=== PATIENT | male | born 1990 | race Caucasian/White ===

== ENCOUNTER 2022-08-31 06:08 | Emergency (ER) | payer OTHER, SELFPAY ==
--- NOTE | ~2022-08-31 | XR_ITS ---
EXAMINATION: XR FOOT, LEFT CLINICAL INFORMATION: Injury. Fall. COMPARISON: None TECHNIQUE: AP, lateral, and oblique views of the left foot. FINDINGS: There is a comminuted minimally displaced fracture of the mid and distal shaft of the fifth metatarsal bone. No other fracture is seen. Joint spaces are normal. There is soft tissue swelling adjacent to the fracture. XR/XR foot LT min 3V IMPRESSION: Comminuted minimally displaced fracture of the mid and distal shaft of the left fifth metatarsal bone.
[2022-08-31 06:24] VITALS: BP 153/102; PULSE 94; RESP 16; TEMP 36.1; O2SAT 98; BMI 34.8
--- NOTE | 2022-08-31 07:32 | ED.EXTPRO ---
HPI - Extremity Problem General Chief complaint: Extremity Problem Stated complaint: L foot inj/Fall Time Seen by Provider: 08/31/22 07:15 Source: patient Mode of arrival: ambulatory Limitations: no limitations History of Present Illness HPI Narrative: 31-year-old male came in for evaluation of left foot pain. Patient fell 2 days ago falling and twisting his left foot complaining of swelling and black and blue hematoma to the left foot, unable to bear weight using crutches to walk did not seek medical attention [place]. Did not hurt his head no LOC, no headache, no blurry vision, no CP, no SOB, no abdominal pain. Related Data Previous Rx's Medication Instructions Recorded albuterol sulfate 90 mcg/actuation 2 puff inhalation Q6H PRN 08/07/22 aerosol inhaler (ProAir HFA) shortness of breath or wheezing 30 days #18 grams Allergies Allergy/AdvReac Type Severity Reaction Status Date / Time No Known Drug Allergies Allergy Unknown Unknown Verified 08/07/22 17:10 Review of Systems Review of Systems: All other systems are reviewed and are negative Constitutional: Reports as per HPI and Reports no additional constitutional complaints Eyes: Reports as per HPI and Reports no additional eye complaints Reports system reviewed and no additional complaints, except as documented Cardiovascular: Reports as per HPI and Reports no additional cardiovascular complaints Respiratory: Reports as per HPI and Reports no additional respiratory complaints Gastrointestinal: Reports as per HPI and Reports no additional gastrointestinal complaints Genitourinary: Reports no additional female genitourinary complaints Musculoskeletal: Reports no additional musculoskeletal complaints Skin/Breast: Reports system reviewed and no additional complaints, except as docu Psychiatric: Reports no additional psychiatric complaints Endocrine: Reports no additional endocrine complaints Hematologic/Lymphatic: Reports no additional hematologic/lymphatic complaints Allergic/Immunologic: Reports no additional allergic/immunologic complaints Reports system reviewed and no additional complaints, except as documented and Reports Abnormal speech present [facility] Past Medical History Medical History ADHD (attention deficit hyperactivity disorder) Anxiety Asthma Depression Obesity (BMI 30-39.9) Surgical History History of tonsillectomy and adenoidectomy S/P appendectomy Family History Family History Father Kidney problem Mother Heart problem Other Mental health problem Social History Social History Housing: Apartment Alcohol intake: current Alcohol intake frequency: a few times a month Patient Tobacco Use Status: Former Tobacco user Second Hand Smoke Exposure: Yes Substance Use Type: Marijuana Advance Directives: No Advance Directives Information Provided: No service: No Current occupational status: employed Cognitive needs: No Hearing needs: No Vision needs: Yes Physical Exam Vital Signs: Vital Signs: Last Vital Signs Temp 97.0 F 08/31/22 06:24 Pulse 94 08/31/22 06:24 Resp 16 08/31/22 06:24 BP 153/102 H 08/31/22 06:24 Pulse Ox 98 08/31/22 06:24 O2 Del Method 08/31/22 06:24 BMI result Body Mass Index 34.8 Vital signs have been reviewed as appeared to be correct. Blood pressure normal. Heart rate normal. Respiration rate normal. Temperature normal. Oxygen saturation normal. Appearance: Alert. Oriented X3. No acute distress. Head: Normal external exam. Normocephalic. Atraumatic. No Rust signs noted. No raccoon eyes noted Eyes: PERRLA. EOMI. Conjunctiva and sclera normal. Eyelids normal. ENT: TM's Normal. Pharynx normal. Uvula midline. Moist mucous membranes. No trismus noted. No drooling noted. No muffled voice noted. Neck: Normal inspection. Neck supple. FROM. No adenopathy. Thyroid Normal. No meningeal signs. No neck mass noted. CVS: Normal heart rate and rhythm. Heart sound normal. No murmurs noted. Pulses normal throughout. Respiratory: No respiratory distress. Painless inspiration. Breath sounds normal. No wheezes/rales/rhonchi noted. Chest nontender. No accessory muscle usage noted or decreased air movement noted. Abdomen: Soft and nontender. Bowel sounds normal in all 4 quadrants. No distention noted. No organomegaly noted. No visible injury noted. Back: No CVA tenderness. Full range of motion noted. Skin: Skin warm and dry. Normal skin color. Normal skin turgor. No rashes/lesions/lacerations noted. Extremities: Left foot with diffuse tenderness, swelling, areas of ecchymosis at the bases of the toes with diffuse tenderness to the distal of metatarsal area, neurovascularly intact. Neuro: Oriented X 3. Cranial nerve exam: II-XII are grossly intact No motor deficit. No sensory deficit. Reflexes normal. Course Course Course Narrative: Left metatarsal comminuted fracture. Continue with crutches, will provide postoperative shoe and follow up with Ortho. MDM - Extremity (Nontraumatic) Imaging Data Left foot x-ray: Attestation: I personally reviewed and interpreted this imaging study as follows: Radiologist's impression: Comminuted minimally displaced fracture of the mid and distal shaft of the left fifth metatarsal bone. Discharge Plan Discharge Clinical Impression: Displaced fracture of fifth metatarsal bone, left foot, initial encounter for closed fracture Patient Disposition: Home, Self-Care Instructions: Foot Fracture in Adults (ED) Prescriptions: No Action albuterol sulfate [ProAir HFA] 90 mcg/actuation HFA aerosol inhaler 2 puff inhalation Q6H PRN (Reason: shortness of breath or wheezing) 30 Days Qty: 18 5RF Referrals: Estuardo Kang MD [Physician] - Stand Alone Forms: Work/School Release
== END 2022-08-31 09:05 | disposition home or self-care (01) ==
PROVIDERS: Emergency Provider Emergency Medicine
DX: S92.352A Displaced fracture of fifth metatarsal bone, left foot, initial encounter for closed fracture (principal); X50.1XXA Overexertion from prolonged static or awkward postures, initial encounter; Y93.9 Activity, unspecified; Y92.9 Unspecified place or not applicable; Y99.9 Unspecified external cause status
CPT/HCPCS: 73630; 99283

== ENCOUNTER 2022-09-12 | Outpatient (REF) | payer OTHER, SELFPAY ==
--- NOTE | ~2022-09-12 | XR_ITS ---
EXAMINATION: XR FOOT, LEFT CLINICAL INFORMATION: Fracture left fifth metatarsal. Follow-up. COMPARISON: Radiographs left foot 08/31/2022. TECHNIQUE: Left foot is imaged in 3 views. FINDINGS: There is a comminuted fracture mid to distal shaft left fifth metatarsal, alignment similar to prior study. No interval callus formation. Again, there is some overlap of the fracture fragments. Distal major fracture fragment is displaced medially by one half bone diameter. The remainder the bony structures are intact. No dislocation. XR/XR foot LT min 3V IMPRESSION: Comminuted fracture left fifth metatarsal, alignment similar to prior study 08/31/2022.
== END 2022-09-12 00:01 | disposition home or self-care (01) ==
LOC: HO.HOSX
PROVIDERS: Visit Provider Physician Assistant
DX: M79.672 Pain in left foot (principal)
CPT/HCPCS: 73630

== ENCOUNTER 2022-10-10 12:19 | Outpatient (REF) | payer OTHER, SELFPAY ==
--- NOTE | ~2022-10-10 | XR_ITS ---
EXAMINATION: XR foot LT min 3V CLINICAL INFORMATION: Reason for Exam M79.672 - Pain in left foot COMPARISON: Foot radiographs 09/12/2022 TECHNIQUE: AP, lateral, and oblique views of the foot FINDINGS: Again seen is an obliquely oriented comminuted fracture of the distal fifth metatarsal diaphysis which demonstrates increasing periosteal reaction compatible with ongoing healing, in unchanged alignment. Plantar calcaneal spurring. Joint spaces are maintained. Mild soft tissue swelling along the dorsum of the foot. No tibiotalar joint effusion. XR/XR foot LT min 3V IMPRESSION: Again seen is an obliquely oriented comminuted fracture of the distal fifth metatarsal diaphysis which demonstrates increasing periosteal reaction compatible with ongoing healing, in unchanged alignment.
== END 2022-10-10 12:20 | disposition home or self-care (01) ==
LOC: HO.HOSX 12:19
PROVIDERS: Visit Provider Physician Assistant
DX: M79.672 Pain in left foot (principal)
CPT/HCPCS: 73630

== ENCOUNTER 2022-11-07 06:47 | Outpatient (REF) | payer OTHER, SELFPAY ==
--- NOTE | ~2022-11-07 | XR_ITS ---
EXAMINATION: XR FOOT, LEFT CLINICAL INFORMATION: Left foot pain COMPARISON: 10/10/2022 TECHNIQUE: AP, lateral, and oblique views of the left foot. FINDINGS: Redemonstration of the fifth metatarsal shaft fracture. Alignment is unchanged from prior. There is increased callus formation with bony bridging. Joint spaces are maintained. The soft tissues are unremarkable. Tiny plantar heel spur. XR/XR foot LT min 3V IMPRESSION: Healing fifth metatarsal shaft fracture with unchanged alignment.
== END 2022-11-07 06:48 | disposition home or self-care (01) ==
LOC: HO.HOSX 06:47
PROVIDERS: Visit Provider Physician Assistant
DX: M79.672 Pain in left foot (principal)
CPT/HCPCS: 73630

== ENCOUNTER 2023-08-06 15:52 | Outpatient (AMB) | payer OTHER, SELFPAY ==
--- NOTE | 2023-08-06 16:01 | MHC.PC.OV ---
Vital Signs 08/06/23 16:02 Height 5 ft 10 in Weight 247 lb BMI 35.4 BP 134/86 Blood Pressure Location Lt brachial Position Sitting Pulse 72 Pulse Source Pulse Oximeter Temp Source Skin Pulse Oximetry (%) 97 Oxygen Delivery Method Room Air Intake Visit Reasons: Lyme Disease F/U Allergies shellfish derived Allergy (Severe, Verified 08/06/23 16:17) Anaphylaxis No Known Drug Allergies Allergy (Unknown, Verified 08/06/23 16:17) Unknown Medication List - Last Reconciled 08/06/23 by JESUS Quintero albuterol sulfate 90 mcg/actuation (ProAir HFA) 2 puffs inhalation Q6H PRN 30 days clonidine HCl 0.3 mg PO BEDTIME doxycycline hyclate 100 mg PO BID lamotrigine 50 mg PO DAILY sertraline 50 mg PO DAILY Tobacco use date assessed: 08/06/23 Dental Screening Dental Screen Date: 08/06/23 Did you have a dental visit in the last 12 months?: No Did you have a dental problem in the last 6 months where you did not have access to dental care?: No HPI Lyme Disease F/U HPI Details Patient is a 32-year-old male who presents today for an office visit to follow-up on Lyme disease. Patient of Dr. Larson. Medical history significant for asthma, anxiety, ADHD, obesity. Patient reports that he was more tired for the past few months, then he went to urgent care about 1 week ago and he tested positive for Lyme disease, patient was started on doxycycline b.i.d. for 14 days, he started antibiotic about 4 days ago. Patient reports when he was sick and not feeling well he was intermittently off from work for about 7 days, he reports that he was sleeping for 12-16 hours and he missed work and he would like to have intermittent FMLA paperwork filled out-he will provide office with paperwork for missed days from work. No shortness of breath or chest pain. [facility] Medical History ADHD (attention deficit hyperactivity disorder) Anxiety Asthma Depression Obesity (BMI 30-39.9) Surgical History History of tonsillectomy and adenoidectomy S/P appendectomy Family History Father Kidney problem Cardiomyopathy Mother Heart problem Other Mental health problem Social History Housing: Apartment Alcohol intake: current Alcohol intake frequency: a few times a month Patient Tobacco Use Status: Former Tobacco user (smoked for 1 month or 2 at age 22 then stopped.) Second Hand Smoke Exposure: Yes Substance Use Type: Marijuana service: No Current occupational status: employed Current occupation: post office, rt hand Cognitive needs: No Hearing needs: No Vision needs: Yes Questionnaire Thrive Questionnaire Date Thrive assessed: 01/09/23 AUDIT C Alcohol Use Questionnaire (AUDIT-C) 1. How often do you have a drink containing alcohol?: Never 3. How often do you have six or more drinks on one occasion?: Never Total Score: 0 Score Reviewed/Action Taken: No ALEJANDRA-7 AMB Questionnaire ALEJANDRA-7 Date ALEJANDRA - 7 assessed: 08/07/22 Source: Developed by Drs. Berhane Roberts, Eva Singh, Gustavo Turcios and colleagues, with an educational marii from [employer]. Review of Systems Const Denies body aches, Denies chills, Denies fever(s) and Denies headache(s) Eyes Denies change in vision ENT Denies dizziness, Denies otalgia, Denies headache(s), Denies nasal discharge, Denies sinus pain and Denies sore throat Card Denies chest pain, Denies edema, Denies lightheadedness and Denies dyspnea Resp Denies cough, Denies dyspnea and Denies wheezing GI Denies abdominal pain Denies dysuria Musc Denies myalgias Skin/Breast Denies rash Neuro Denies dizziness and Denies headache(s) Aller/Immun Denies wheezing Physical exam (Primary Care) Vital Signs: Last Vital Signs Pulse 72 08/06/23 16:02 BP 134/86 08/06/23 16:02 Pulse Ox 97 08/06/23 16:02 Oxygen Delivery Method Room Air 08/06/23 16:02 BMI result Body Mass Index 35.4 Tobacco/Smoking Status: Tobacco use Status Tobacco use date assessed 08/06/23 08/06/23 16:05 Patient Tobacco Use Status Former Tobacco user (smoked 08/06/23 16:05 for 1 month or 2 at age 22 then stopped.) Thrive Assessment: Date of Thrive Assessment Date Thrive assessed 01/09/23 08/06/23 16:05 Const General: cooperative and no acute distress Orientation/consciousness: patient oriented x3 HENMT Head: Yes normocephalic and Yes atraumatic Mouth: oropharynx normal and moist mucous membranes Throat: Yes posterior oropharynx normal Eyes General: appearance normal, both eyes and all related structures Neck Neck: Yes normal visual inspection, Yes full ROM and Yes no lymphadenopathy Resp Effort & Inspection: normal respiratory effort and able to speak in complete sentences Auscultation: clear to auscultation bilaterally, no crackles, no rales, no rhonchi and no wheezes Cardio Rate: regular rate Rhythm: regular rhythm Heart sounds: S1 normal heart sound present and S2 normal heart sound present GI Auscultation: normal bowel sounds Skin General skin exam: no rashes or lesions noted Neuro General: patient oriented x3 Gait exam (Neuro): Normal gait present Extrem General: Yes full ROM and No edema Assessment and Plan Assessment & Plan (1) Lyme disease: Code(s): A69.20 - Lyme disease, unspecified Plan: Patient is to continue doxycycline as prescribed by urgent care. Will refer to Infectious Disease for an evaluation and treatment. Patient agreed with the plan. Keep appointment with PCP as scheduled or follow-up sooner as needed. Orders: Referrals Infectious Disease Referral A69.20 - Lyme disease, unspecified Coding Level of Care Code Est Pt Level 3 (09003) Diagnoses Lyme disease A69.20
[2023-08-06 16:02] VITALS: BP 134/86; PULSE 72; O2SAT 97; BMI 35.4
== END 2023-08-06 16:33 | disposition home or self-care (01) ==
PROVIDERS: PCP Internal Medicine; Visit Provider Nurse Practitioner Family
DX: A69.20 Lyme disease, unspecified (principal)
CPT/HCPCS: 99213

== ENCOUNTER 2023-08-08 12:55 | Outpatient (REF) | payer OTHER, SELFPAY ==
[2023-08-08 14:18] LABS: Alanine Aminotransferase 29 U/L (0-40); Albumin Level 4.6 g/dL (3.5-5.0); Alkaline Phosphatase 66 U/L (39-117); Anion Gap 12 (12-20); Aspartate Amino Transferase 20 U/L (5-37); Bilirubin Total 0.6 mg/dL (0.0-1.0); Blood Urea Nitrogen 12 mg/dL (9-16); Calcium 9.8 mg/dL (8.4-10.2); Carbon Dioxide 27 mmol/L (22-29); Chloride 107 mmol/L (96-108); Cholesterol 198 mg/dL (<200); Estimated Glomerular Filt Rate > 60; Glucose Random 102 mg/dL (60-115); HDL Cholesterol 33 mg/dL (>40); LDL Cholesterol Calculated 132 mg/dL (<100); Potassium 4.6 mmol/L (3.3-5.1); Sodium 141 mmol/L (135-145); Total Protein 7.5 g/dL (6.5-8.0); Triglycerides 168 mg/dL (<150)
[2023-08-08 14:20] LABS: TSH reflex Free T4 0.73 uIU/mL (0.32-4.0); Vitamin D 25-OH Total 31.8 ng/mL (>30)
== END 2023-08-08 12:56 | disposition home or self-care (01) ==
LOC: HO.LAB 12:55
PROVIDERS: PCP Internal Medicine; Visit Provider Nurse Practitioner Family
DX: Z13.1 Encounter for screening for diabetes mellitus (principal); Z13.29 Encounter for screening for other suspected endocrine disorder; Z13.220 Encounter for screening for lipoid disorders; Z13.21 Encounter for screening for nutritional disorder; Z13.0 Encounter for screening for diseases of the blood and blood-forming organs and certain disorders involving the immune mechanism
CPT/HCPCS: 36415; 80053; 80061; 82306; 84443

== ENCOUNTER 2023-08-15 13:36 | Outpatient (AMB) | payer OTHER, SELFPAY ==
[2023-08-15 13:45] VITALS: BP 120/70; PULSE 71; O2SAT 97; BMI 35.7
--- NOTE | 2023-08-15 13:45 | MHC.OFFVIS ---
Intake Vital Signs 08/15/23 13:45 Height 5 ft 10 in Weight 249 lb BMI 35.7 BP 120/70 Pulse 71 Pulse Source Pulse Oximeter Pulse Oximetry (%) 97 Intake Visit Reasons: ref. Eloisa MelgarManjindere disease Allergies shellfish derived Allergy (Severe, Verified 08/06/23 16:17) Anaphylaxis No Known Drug Allergies Allergy (Unknown, Verified 08/06/23 16:17) Unknown HPI ref. Eloisa Melgar,[place] disease HPI Details He presents because he felt fatigued and achy and had a Lyme test performed. He had no rash,joint swelling,meningitis or lancinating painful neuropathy. He reported a fever about a month ago for a couple days. He didnt notice any imbedded ticks. FORMERLY [facility], [facility]1983 Medical History (Updated 08/24/23 @ 21:57 by Jasmine Gale MD) Fatigue Obesity (BMI 30-39.9) Asthma Anxiety Depression ADHD (attention deficit hyperactivity disorder) Surgical History History of tonsillectomy and adenoidectomy S/P appendectomy Family History Father Kidney problem Cardiomyopathy Mother Heart problem Other Mental health problem Social History Housing: Apartment Alcohol intake: current Alcohol intake frequency: a few times a month Patient Tobacco Use Status: Former Tobacco user (smoked for 1 month or 2 at age 22 then stopped.) Second Hand Smoke Exposure: Yes Substance Use Type: Marijuana service: No Current occupational status: employed Current occupation: post office, rt hand Cognitive needs: No Hearing needs: No Vision needs: Yes Review of Systems Const All systems reviewed & are unremarkable except as noted in HPI and below Physical Exam Vital Signs: Last Vital Signs Pulse 71 08/15/23 13:45 BP 120/70 08/15/23 13:45 Pulse Ox 97 08/15/23 13:45 BMI result Body Mass Index 35.7 Const General: cooperative Orientation/consciousness: patient oriented x3 HEENT Head: Yes normal to inspection Mouth: Normal oral and palatal mucosa present Eyes General: appearance normal, both eyes and all related structures Pupils: Equal, round and reactive pupils present Resp Effort & Inspection: normal respiratory effort Cardio Rate: regular rate Rhythm: regular rhythm GI Palpation (GI): Soft to palpation and nontender General: Yes no CVA tenderness Back/Spine/Pelvis Back: no CVA tenderness Skin General skin exam: no rashes or lesions noted Neuro General: patient oriented x3 Cranial nerves: Yes CN's II-XII intact bilaterally and Yes Equal, round and reactive pupils present Extrem General: Yes normal to inspection Psych Appearance: grossly normal Assessment & Plan Assessment & Plan (1) Fatigue: Comment: He has reported positive Lyme testing. He has fatigue. There are no objective signs of Lyme disease. Code(s): R53.83 - Other fatigue Plan: No further treatment or testing for Lyme disease Coding Level of Care Code New Pt Level 3 (97000) Diagnoses Fatigue R53.83
== END 2023-08-15 14:18 | disposition home or self-care (01) ==
LOC: HO.HID 13:36
PROVIDERS: PCP Internal Medicine; Visit Provider Internal Medicine
DX: R53.83 Other fatigue (principal)
CPT/HCPCS: 99203

== ENCOUNTER → 2023-08-15 13:36 | Outpatient (BNVA) | payer OTHER, SELFPAY | PROVIDERS: PCP Internal Medicine; Visit Provider Internal Medicine ==

== ENCOUNTER 2024-01-22 10:48 | Outpatient (AMB) | payer OTHER, SELFPAY ==
[2024-01-22 10:57] VITALS: BP 116/78; PULSE 81; O2SAT 96; BMI 37.0
--- NOTE | 2024-01-22 10:57 | MHC.PC.OV ---
Vital Signs 01/22/24 10:57 Height 5 ft 10 in Weight 258 lb 2 oz BMI 37.0 BP 116/78 Blood Pressure Location Lt brachial Position Sitting Pulse 81 Pulse Source Pulse Oximeter Pulse Oximetry (%) 96 Oxygen Delivery Method Room Air Intake Visit Reasons: physical Proj Engineer Required: No Accompanied by: Self / Same As Patient Allergies shellfish derived Allergy (Severe, Verified 01/22/24 11:46) Anaphylaxis No Known Drug Allergies Allergy (Unknown, Verified 01/22/24 11:46) Unknown Medication List - Last Reconciled 01/22/24 by Eugenio Larson MD albuterol sulfate 90 mcg/actuation (ProAir HFA) 2 puffs inhalation Q6H PRN 30 days clonidine HCl 0.3 mg PO BEDTIME lamotrigine 75 mg PO DAILY sertraline 75 mg PO DAILY Tobacco use date assessed: 01/22/24 Dental Screening Dental Screen Date: 01/22/24 Did you have a dental visit in the last 12 months?: No Did you have a dental problem in the last 6 months where you did not have access to dental care?: No Was dental information given to patient?: No HPI physical HPI Details Patient comes in today for his annual physical examination States that he has a few issues that he would like to have addressed Relates that he has been experiencing on and off pain in his left knee lately - feels that the pain ( more of a discomfort rather than actual pain ) is mostly under his left kneecap and that he feels it more often when he is on his feet and walking around He denies any history of injury or trauma to his left knee Adds that he's had some occasional episodes wherein he would develop double-vision recently Relates that he has (+) Hx of astigmatism and will be calling his african history professor to schedule an appointment for further evaluation of this BERTHA Patient also states that he has been waking up occasionally at night coughing and gagging recently He has also been experiencing increased fatigue lately and recalls that it has been mentioned to him in the past that he tends to have occasional apneic episodes when he is sleeping and he would not like to see somebody and get tested for sleep apnea Patient denies any headaches or dizziness Denies any chest pains, no shortness of breath No nausea/ vomiting, no abdominal pain No change in bowel habits noted He denies any acute urinary symptoms PFSH Medical History (Updated 01/23/24 @ 05:37 by Eugenio Larson MD) Bipolar disorder with depression Mixed hyperlipidemia Fatigue Obesity (BMI 30-39.9) Asthma Anxiety Depression ADHD (attention deficit hyperactivity disorder) Surgical History History of tonsillectomy and adenoidectomy S/P appendectomy Family History Father Kidney problem Cardiomyopathy Mother Heart problem Other Mental health problem Social History Housing: Apartment Alcohol intake: current Alcohol intake frequency: a few times a month Patient Tobacco Use Status: Former Tobacco user (smoked for 1 month or 2 at age 22 then stopped.) Second Hand Smoke Exposure: Yes Substance Use Type: Marijuana service: No Current occupational status: employed Current occupation: post office, rt hand Cognitive needs: No Hearing needs: No Vision needs: Yes Questionnaire PHQ-9 Over the last 2 weeks, how often have you been bothered by any of the following problems? 1. Little interest or pleasure in doing things: more than half the days 2. Feeling down, depressed, or hopeless: more than half the days 3. Trouble falling or staying asleep, or sleeping too much: more than half the days 4. Feeling tired or having little energy: more than half the days 5. Poor appetite or overeating: more than half the days 6. Feeling bad about yourself - or that you are a failure or have let yourself or your family down: more than half the days 7. Trouble concentrating on things, such as reading the newspaper or watching television: more than half the days 8. Moving or speaking so slowly that other people could have noticed. Or the opposite - being so fidgety or restless that you have been moving around a lot more than usual: more than half the days 9. Thoughts that you would be better off or of hurting yourself in some way: several days Total score: 17 Depression Screening Interpretation: Positive Depression Screening Follow-up: Existing condition and In treatment (Rx from psychiatry) Depression Screening Done: Yes 88391 - PHQ-9 Billing: Yes Source: Developed by Drs. Berhane Roberts, Eva Singh, Gustavo Turcios and colleagues, with an educational marii from [employer]. Thrive Questionnaire Date Thrive assessed: 01/22/24 I am a: Patient What is your living situation today?: I have a steady place to live Within the past 12 months, did the food you bought not last and you didn't have the money to get more?: Never true Within the past 12 months, did you worry whether your food would run out before you got money to buy more?: Never true Do you have trouble paying for medicines?: No Do you have trouble getting transportation to medical appointments?: No Do you have trouble paying your heating and electricity bill?: No Do you have trouble taking care of your child, family member or friend?: No Do you have trouble with day-to-day activities such as bathing, preparing meals, shopping, managing finances, etc.?: No Are you currently unemployed and looking for a job?: No Are you interested in more education?: No Please select the resources that you would like help with: None Currently or been in a relationship where the following occur: no concerns reported THRIVE Score: 0 AUDIT C Alcohol Use Questionnaire (AUDIT-C) 1. How often do you have a drink containing alcohol?: Never 3. How often do you have six or more drinks on one occasion?: Never Total Score: 0 Score Reviewed/Action Taken: Yes ALEJANDRA-7 AMB Questionnaire ALEJANDRA-7 Date ALEJANDRA - 7 assessed: 01/22/24 Feeling nervous, anxious, or on edge: 0 = Not at all Not being able to stop or control worryin = Not at all Worrying too much about different things: 0 = Not at all Trouble relaxin = Not at all Being so restless that it is hard to sit still: 0 = Not at all Becoming easily annoyed or irritable: 0 = Not at all Feeling afraid as if something awful might happen: 0 = Not at all Total ALEJANDRA-7 score (0-4 normal; 5-9 mild; 10-14 moderate; 15-21 severe): 0 Source: Developed by Eva Parks, Gustavo Turcios and colleagues, with an educational marii from [employer]. Review of Systems Const Denies chills, Reports daytime sleepiness, Reports fatigue, Denies fever(s), Denies headache(s), Denies malaise, Reports stops breathing during sleep and Denies weakness Eyes Denies blurry vision, Denies change in vision, Reports diplopia (on and off lately), Denies irritation and Denies itchy eyes ENT Denies dysphagia, Denies dizziness, Denies otalgia, Denies headache(s), Denies nasal congestion, Denies neck pain, Denies odynophagia and Denies sore throat Card Denies chest pain, Denies rapid heart rate, Denies irregular heart rhythm, Denies palpitations and Denies dyspnea Resp Denies chest congestion, Denies cough, Denies dyspnea and Denies wheezing GI Denies abdominal pain, Denies bloating, Denies constipation, Denies dysphagia, Denies heartburn, Denies diarrhea, Denies nausea, Denies odynophagia and Denies vomiting Denies hematuria, Denies difficulty urinating, Denies dysuria, Denies urinary frequency and Denies urinary urgency Musc Denies back pain, Reports arthralgias (left knee - see HPI), Denies joint swelling, Denies muscle weakness and Denies neck pain Skin/Breast Denies change in pigmentation, Denies lesions, Denies rash and Denies unusual bruising Neuro Denies dizziness, Denies headache(s), Denies paresthesias and Denies weakness Endo Reports fatigue and Denies palpitations Aller/Immun Denies itchy eyes and Denies wheezing Physical exam (Primary Care) Vital Signs: Last Vital Signs Pulse 81 01/22/24 10:57 BP 116/78 01/22/24 10:57 Pulse Ox 96 01/22/24 10:57 Oxygen Delivery Method Room Air 01/22/24 10:57 BMI result Body Mass Index 37.0 Tobacco/Smoking Status: Tobacco use Status Tobacco use date assessed 01/22/24 01/22/24 11:05 Patient Tobacco Use Status Former Tobacco user (smoked 01/22/24 11:05 for 1 month or 2 at age 22 then stopped.) PHQ-9: PHQ-9 Score PHQ-9: Total score 17 01/22/24 11:50 Depression Screening Interpretation: Positive Depression Screening Follow-up: Existing condition and In treatment (Rx from psychiatry) Thrive Assessment: Date of Thrive Assessment Date Thrive assessed 01/22/24 01/22/24 11:05 Currently or been in a relationship where the following occur: no concerns reported Const General: no acute distress, alert and awake Orientation/consciousness: patient oriented x3 [facility]: Yes normocephalic and Yes atraumatic Ears: external ears normal, TM's normal bilaterally and EAC's normal General nose exam: No nasal discharge present Face and sinus: Yes normal facial exam and Yes sinuses nontender Teeth and gingiva: dentition normal Throat: Yes posterior oropharynx normal and Yes tonsils normal (no TP congestion) Eyes Eyelids: Yes eyelids normal Conjunctivae: conjunctivae normal Pupils: Equal, round and reactive pupils present EOM: EOMs intact bilaterally Neck Neck: Yes no lymphadenopathy and Yes supple Thyroid: Thyroid normal Resp Auscultation: clear to auscultation bilaterally, no rales and no wheezes Cardio Rate: regular rate Rhythm: regular rhythm Heart sounds: no murmurs GI Palpation (GI): Soft to palpation, nontender and No hepatosplenomegaly present Auscultation: normal bowel sounds General: Yes no CVA tenderness Back/Spine/Pelvis Back: no CVA tenderness Thoracic/Lumbar Spine: thoracic and lumbar spine normal to inspection Skin Lesions: no lesions Rashes: no rashes Neuro General: patient oriented x3, moves all extremities, no focal motor deficits and CN's II-XI intact bilaterally Cranial nerves: Yes Equal, round and reactive pupils present Cognition (Neuro): normal cognition Gait exam (Neuro): Normal gait present Extrem General: Yes no clubbing, cyanosis or edema Left lower extremity: knee (no pain is elicited on physical exam today) Details: no tenderness and no swelling Assessment and Plan Assessment & Plan (1) Annual physical exam: Code(s): Z00.00 - Encounter for general adult medical examination without abnormal findings Plan: Check labs (2) Mixed hyperlipidemia: Code(s): E78.2 - Mixed hyperlipidemia Plan: Reinforced low cholesterol diet Patient is advised that his cholesterol levels were elevated when checked previously Will send him for repeat fasting lipids for follow up (3) Elevated blood pressure reading: Code(s): R03.0 - Elevated blood-pressure reading, without diagnosis of hypertension Plan: Patient's blood pressure has been much better controlled since his initial visit to our practice a couple of years ago Reinforced low sodium diet He is reminded to monitor his blood pressure periodically (4) Asthma: Code(s): J45.909 - Unspecified asthma, uncomplicated Qualifiers: Asthma severity: mild Asthma persistence: intermittent Asthma complication type: uncomplicated Qualified Code(s): J45.20 - Mild intermittent asthma, uncomplicated Plan: Continue Albuterol HFA 2 inhalations Q 6 hours PRN May need to consider further work ups if symptoms persist or if he has to use his inhaler regularly and frequently (5) Left knee pain: Code(s): M25.562 - Pain in left knee Qualifiers: Chronicity: unspecified Qualified Code(s): M25.562 - Pain in left knee Plan: He is reassured that his physical exam today did not reveal any significant findings in his knee Will send him for some knee x-rays for further evaluation (6) Daytime somnolence: Code(s): R40.0 - Somnolence Plan: Will refer patient to Sleep Medicine for further evaluation and to help rule out sleep apnea (7) ADHD (attention deficit hyperactivity disorder): Code(s): F90.9 - Attention-deficit hyperactivity disorder, unspecified type Qualifiers: Attention deficit-hyperactivity disorder type: unspecified Qualified Code(s): F90.9 - Attention-deficit hyperactivity disorder, unspecified type Plan: His medical records that we received from his previous PCP has indicated that patient has ADHD, among other diagnoses He is now following up with his therapist and with psychiatry regularly (8) Anxiety: Code(s): F41.9 - Anxiety disorder, unspecified Plan: Patient states that he smokes marijuana regularly to help him relax Continue Clonidine 0.3 mg Q HS and Setraline 75 mg QD Follow up with psychiatry as scheduled (9) Bipolar disorder with depression: Code(s): F31.9 - Bipolar disorder, unspecified Plan: Continue Lamotrigine 75 mg QD and Sertraline 75 mg QD Follow up with psychiatry as scheduled (10) Obesity (BMI 30-39.9): Code(s): E66.9 - Obesity, unspecified Plan: Reinforced diet/exercise as tolerated/lose weight Plan Follow up in 6 months Orders: Orders Complete Blood Count Auto Diff 01/22/24 D64.9 - Anemia, unspecified, Z00.00 - Encounter for general adult medical examination without abnormal findings Comprehensive [place]. Panel Fast 01/22/24 E78.00 - Pure hypercholesterolemia, unspecified, Z00.00 - Encounter for general adult medical examination without abnormal findings UA CC w/rflx Micro + Cult 01/22/24 R30.0 - Dysuria, Z00.00 - Encounter for general adult medical examination without abnormal findings Vitamin D 25-OH Total 01/22/24 E55.9 - Vitamin D deficiency, unspecified, Z00.00 - Encounter for general adult medical examination without abnormal findings XR knee LT 3V 01/22/24 M25.562 - Pain in left knee Lipid Panel 01/22/24 E78.00 - Pure hypercholesterolemia, unspecified, Z00.00 - Encounter for general adult medical examination without abnormal findings TSH reflex Free T4 01/22/24 E78.00 - Pure hypercholesterolemia, unspecified, Z00.00 - Encounter for general adult medical examination without abnormal findings Referrals Sleep Medicine Referral R06.81 - Apnea, not elsewhere classified, R06.83 - Snoring, R40.0 - Somnolence Coding Level of Care Code Est Pt Prev Care 18-39y(46724) Diagnoses Annual physical exam Z00.00 Mixed hyperlipidemia E78.2 Elevated blood pressure reading R03.0 Mild intermittent asthma without complication J45.20 Asthma severity: mild Asthma persistence: intermittent Asthma complication type: uncomplicated Left knee pain, unspecified chronicity M25.562 Chronicity: unspecified Daytime somnolence R40.0 Attention deficit hyperactivity disorder (ADHD), unspecified ADHD type F90.9 Attention deficit-hyperactivity disorder type: unspecified Anxiety F41.9 Bipolar disorder with depression F31.9 Obesity (BMI 30-39.9) E66.9
== END 2024-01-22 11:59 | disposition home or self-care (01) ==
PROVIDERS: PCP Internal Medicine; Visit Provider Internal Medicine
DX: Z00.00 Encounter for general adult medical examination without abnormal findings (principal); E66.9 Obesity, unspecified; Z68.37 Body mass index [BMI] 37.0-37.9, adult; F31.9 Bipolar disorder, unspecified; E78.2 Mixed hyperlipidemia; R03.0 Elevated blood-pressure reading, without diagnosis of hypertension; J45.20 Mild intermittent asthma, uncomplicated; M25.562 Pain in left knee; R40.0 Somnolence; F90.9 Attention-deficit hyperactivity disorder, unspecified type; F41.9 Anxiety disorder, unspecified
CPT/HCPCS: 99395

== ENCOUNTER 2024-01-22 12:05 | Outpatient (REF) | payer OTHER, SELFPAY ==
--- NOTE | ~2024-01-22 | XR_ITS ---
EXAMINATION: XR KNEE, LEFT CLINICAL INFORMATION: Pain in left knee. COMPARISON: None available. TECHNIQUE: Three views of the left knee. FINDINGS: Lvese-tz-wdbtbyog joint effusion. Joint spaces and alignment are preserved. Small sclerotic/ossific oval focus projects over the lateral femoral condyle on the sunrise view and over the anterior aspect of the distal femur on the lateral view. Differential considerations include an ossific lesion such as a bone island, versus soft tissue calcification/loose body. XR/XR knee LT 3V IMPRESSION: 1. Wqzeo-kc-mqtjddgj joint effusion. 2. Small sclerotic/ossific oval focus projects over the lateral femoral condyle on the sunrise view and over the anterior aspect of the distal femur on the lateral view. Differential considerations include an ossific lesion such as a bone island, versus soft tissue calcification/loose body. MRI could be considered for further evaluation.
[2024-01-22 12:25] LABS: MANUAL DIFF FLAG NO
[2024-01-22 13:28] LABS: Basophils Absolute Auto 0.1 X10*3/uL (0.0-0.2); Basophils Percent Auto 1.2 % (0-2); Eosinophils Absolute Auto 0.5 X10*3/uL (0.0-0.4); Eosinophils Percent Auto 6.6 % (0-4); Hematocrit 45.4 % (42.0-52.0); Hemoglobin 15.5 g/dl (14.0-18.0); Imm Gran Abs Auto 0.04 X10*3/uL (0.00-0.03); Imm Gran Pct Auto 0.6 % (0.0-0.4); Lymphocytes Absolute Auto 1.9 X10*3/uL (1.2-4.9); Lymphocytes Percent Auto 28.3 % (20-40); Mean Corpuscular HGB Conc 34.1 g/dl (31.0-36.0); Mean Corpuscular Volume 84.9 fL (80.0-98.0); Mean Platelet Volume 9.2 fL (9.4-12.4); Monocytes Absolute Auto 0.6 X10*3/uL (0.1-1.2); Monocytes Percent Auto 8.2 % (2-11); Neutrophils Absolute Auto 3.8 x10*3/uL (2.0-8.3); Neutrophils Percent Auto 55.1 % (45-73); Platelet Count 252 X10*3/uL (160-400); Red Blood Count 5.35 X10*6/uL (4.60-5.80); Red Cell Distribution Width 12.3 % (11.0-16.0); White Blood Count 6.8 X10*3/uL (4.8-10.8)
[2024-01-22 14:00] LABS: Alanine Aminotransferase 30 U/L (0-40); Albumin Level 4.8 g/dL (3.5-5.0); Alkaline Phosphatase 63 U/L (39-117); Anion Gap 12 (12-20); Aspartate Amino Transferase 19 U/L (5-37); Bilirubin Total 0.5 mg/dL (0.0-1.0); Blood Urea Nitrogen 13 mg/dL (9-16); Calcium 9.8 mg/dL (8.4-10.2); Carbon Dioxide 30 mmol/L (22-29); Chloride 104 mmol/L (96-108); Cholesterol 203 mg/dL (<200); Estimated Glomerular Filt Rate > 60; Glucose Fasting 95 mg/dL (60-99); HDL Cholesterol 36 mg/dL (>40); LDL Cholesterol Calculated 120 mg/dL (<100); Potassium 4.3 mmol/L (3.3-5.1); Sodium 142 mmol/L (135-145); Triglycerides 236 mg/dL (<150)
[2024-01-22 14:16] LABS: TSH reflex Free T4 0.62 uIU/mL (0.32-4.0); Vitamin D 25-OH Total 10.3 ng/mL (>30)
[2024-01-22 15:32] LABS: Appearance Urine Clear; Color Urine Yellow; Glucose Urine UA Negative (Negative); Leukocyte Esterase Urine Negative (Negative); Nitrite Urine Negative (Negative); PH 6.5 (5.0-9.0); Urine Blood Negative (Negative); Urine Ketones Negative (Negative); Urine Protein Negative (Neg-Trace)
== END 2024-01-22 12:06 | disposition home or self-care (01) ==
LOC: HO.XRAY 12:05
PROVIDERS: PCP Internal Medicine; Visit Provider Internal Medicine
DX: M25.562 Pain in left knee (principal); R30.0 Dysuria; E78.00 Pure hypercholesterolemia, unspecified; E55.9 Vitamin D deficiency, unspecified; D64.9 Anemia, unspecified; Z00.00 Encounter for general adult medical examination without abnormal findings
CPT/HCPCS: 36415; 73562; 80053; 80061; 81003; 82306; 84443; 85025

== ENCOUNTER 2024-02-05 12:46 | Outpatient (AMB) | payer OTHER, SELFPAY ==
[2024-02-05 12:55] VITALS: PULSE 88; O2SAT 98; BMI 37.1
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
== END 2024-02-05 13:59 | disposition home or self-care (01) ==
PROVIDERS: PCP Internal Medicine; Visit Provider Nurse Practitioner Family
DX: R06.83 Snoring (principal); G47.19 Other hypersomnia; G47.9 Sleep disorder, unspecified; G43.109 Migraine with aura, not intractable, without status migrainosus
CPT/HCPCS: 99204

== ENCOUNTER → 2024-02-05 12:46 | Outpatient (BNVA) | payer OTHER, SELFPAY | PROVIDERS: PCP Internal Medicine; Visit Provider Nurse Practitioner Family ==

== ENCOUNTER → 2024-04-05 09:25 | Outpatient (REF) | payer OTHER, SELFPAY | LOC: HO.SL 09:25 | PROVIDERS: PCP Internal Medicine; Visit Provider Nurse Practitioner Family | DX: G47.33 Obstructive sleep apnea (adult) (pediatric) (principal); R06.83 Snoring; G47.19 Other hypersomnia | CPT/HCPCS: 95806 ==

== ENCOUNTER → 2024-04-05 09:39 | Outpatient (BNV) | payer OTHER, SELFPAY | PROVIDERS: PCP Internal Medicine; Visit Provider Internal Medicine | DX: G47.33 Obstructive sleep apnea (adult) (pediatric) (principal) | CPT/HCPCS: 95806 ==

== ENCOUNTER 2024-06-04 14:10 | Outpatient (AMB) | payer OTHER, SELFPAY ==
--- NOTE | 2024-06-04 14:14 | A.OFFVIS_ITS ---
Vital Signs 06/04/24 14:18 Height 5 ft 10 in Weight 262 lb BMI 37.6 BP 124/70 Blood Pressure Location Lt brachial Position Sitting Pulse 76 Pulse Source Pulse Oximeter Pulse Oximetry (%) 95 Oxygen Delivery Method Room Air Intake Visit Reasons: follow up Apnea-CONF Intake Note: Patient presents for f/u. Allergies shellfish derived Allergy (Severe, Verified 06/04/24 14:17) Anaphylaxis No Known Drug Allergies Allergy (Unknown, Verified 06/04/24 14:17) Unknown HPI Comments Details: 33-yr-old male presents for f/u visit. Pt denies any significant interval medical changes. Pt's HST showed mild ADTII w/ AHI 6.9/hr w/ O2 kathy 83%. Since, pt started on APAP. He states that it is taking some time to adjust to it. However, even when he has used it for just 3 hours, he does not wake up exhausted. He is not waking up with as many morning headaches and if he has a headache it is milder. He is able to think more clearly now. He did try the Sumatriptan 100mg, which helps the headache pain, however it does cause a weird sensation in his head. Baseline headache characteristics: Has had headaches since his childhood. He had a recent onset of diplopia, which has been attributed to a right eye astigmatism. Recently been fitted for prisms. Mild pressure in his temples and around the back of the head, lasting 2-4 hours, occurring 2-3 times per week. More migraine-like headache described as a severe internal and external pressure in the whole top of his head a/w aura of seeing rainbows, photophobia, phonophobia, allodynia, slight nausea, sleepiness, activity intolerance. This can last 12 hours. Usually occurs about once per month. Does need to miss or leave work for these attacks. Triggers can include vision difficulties, stress, extended focus. Uses Excedrin or ibuprofen as needed, some effect. Compliance Report Usage 05/10/2024 - 06/03/2024 Usage days 14/25 days (56%) Usage days >= 4 hours 4 days (16%) Usage days < 4 hours 10 days (40%) Average usage (days used) 2 hours 16 minutes AirSense 10 AutoSet Serial number [id number] Mode AutoSet Min Pressure 5 cmH2O Max Pressure 20 cmH2O EPR Fulltime EPR level 2 Response Standard Therapy Maximum Pressure: 11.8 cmH2O Residual AHI: 2.4/hr. [facility] Medical History (Updated 06/04/24 @ 14:59 by JESUS Alonzo) Bipolar disorder with depression Mixed hyperlipidemia Fatigue Obesity (BMI 30-39.9) Asthma Anxiety Depression ADHD (attention deficit hyperactivity disorder) Surgical History History of tonsillectomy and adenoidectomy S/P appendectomy Family History Father Kidney problem Cardiomyopathy Mother Heart problem Other Mental health problem Social History Housing: Apartment Alcohol intake: current Alcohol intake frequency: a few times a month Patient Tobacco Use Status: Former Tobacco user (smoked for 1 month or 2 at age 22 then stopped.) Second Hand Smoke Exposure: Yes Substance Use Type: Marijuana service: No Current occupational status: employed Current occupation: post office, rt hand Cognitive needs: No Hearing needs: No Vision needs: Yes Physical Exam Vital Signs: Last Vital Signs Pulse 76 06/04/24 14:18 BP 124/70 06/04/24 14:18 Pulse Ox 95 06/04/24 14:18 Oxygen Delivery Method Room Air 06/04/24 14:18 BMI result Body Mass Index 37.6 Const General: cooperative and no acute distress Orientation/consciousness: patient oriented x3 Resp Effort & Inspection: normal respiratory effort and able to speak in complete sentences Neuro General: patient oriented x3 Cranial nerves: Yes CN's II-XII intact bilaterally Cognition (Neuro): normal cognition Psych Appearance: grossly normal Mental Status: mental status grossly normal Speech and movement: Normal speech and movement present Affect: normal affect Attitude: cooperative Assessment & Plan Assessment & Plan (1) Mild obstructive sleep apnea: Code(s): G47.33 - Obstructive sleep apnea (adult) (pediatric) Category: Medical (2) Migraine with aura: Code(s): G43.109 - Migraine with aura, not intractable, without status migrainosus Category: Medical Plan Reviewed home sleep study- mild sleep apnea. Pt advised to continue APAP 5-20 cmH2O nightly with goal of using > 4 hrs per night, as pt is already experiencing good clinical effect from use. For migraine headache: Trial reducing Sumatriptan to 50mg, 50mg at onset of headache, may repeat in 2 hours. Max of 2 tabs (200mg) per 24 hours. May adjunct with OTC Tylenol 650mg q 4 hours, Ibuprofen 600mg q 6 hours, or Naproxen 440mg q 12 hrs prn. if still poorly tolerated, consider trial of alternate triptan. ? Coding Level of Care Code Est Pt Level 4 (58770) Diagnoses Mild obstructive sleep apnea G47.33 Migraine with aura G43.109
[2024-06-04 14:18] VITALS: BP 124/70; PULSE 76; O2SAT 95; BMI 37.6
== END 2024-06-04 14:55 | disposition home or self-care (01) ==
PROVIDERS: PCP Internal Medicine; Visit Provider Nurse Practitioner Family
DX: G47.33 Obstructive sleep apnea (adult) (pediatric) (principal); G43.109 Migraine with aura, not intractable, without status migrainosus
CPT/HCPCS: 99214

== ENCOUNTER → 2024-06-04 14:10 | Outpatient (BNVA) | payer OTHER, SELFPAY | PROVIDERS: PCP Internal Medicine; Visit Provider Nurse Practitioner Family ==

== ENCOUNTER 2024-07-09 10:42 | Outpatient (AMB) | payer OTHER, SELFPAY ==
--- NOTE | 2024-07-09 10:47 | MHC.PC.OV ---
Vital Signs 07/09/24 10:55 Height 5 ft 10 in Weight 262 lb 4 oz BMI 37.6 BP 146/84 H Blood Pressure Location Lt brachial Position Sitting Pulse 82 Pulse Source Pulse Oximeter Pulse Oximetry (%) 97 Oxygen Delivery Method Room Air Intake Visit Reasons: hyperlipidemia Plastic Installer Required: No Accompanied by: Self / Same As Patient Allergies shellfish derived Allergy (Severe, Verified 07/09/24 11:29) Anaphylaxis No Known Drug Allergies Allergy (Unknown, Verified 07/09/24 11:29) Unknown Medication List - Last Reconciled 07/09/24 by Eugenio Larson MD albuterol sulfate 90 mcg/actuation 2 puffs inhalation Q6H PRN 30 days clonidine HCl 0.3 mg PO BEDTIME lamotrigine 75 mg PO DAILY sertraline 75 mg PO DAILY sumatriptan succinate 50 - 100 mg orally at onset of headache, may repeat in 2 hrs PRN; max 2 tabs per day or 4 tabs/week (may take with Ibuprofen) 30 days Tobacco use date assessed: 01/22/24 Dental Screening Dental Screen Date: 01/22/24 HPI hyperlipidemia HPI Details Patient comes in today for his follow up visit States that he feels okay He was diagnosed with sleep apnea and now has an Autopap machine that he uses at night when sleeping States that he has noticed a huge difference when he was started on his CPAP device and has since been using it regularly at night but lately has forgotten to put it on a few times, mostly when he feels exhausted and ends up falling asleep before he has a chance to put it on He denies any headaches or dizziness Denies any chest pains, no SOB No nausea/vomiting, no abdominal pain No change in bowel habits noted Needs his Albuterol inhaler Rx refilled Adds that he has a large wart on his right index finger that has been present for a while now States that he recently tried using some OTC wart remover but it did not work and he would like to now get a referral to see someone to have this removed He would also like to go over the details of his labs done back in January 2024 [facility] Medical History (Updated 07/09/24 @ 11:51 by Eugenio Larson MD) Vitamin D deficiency Mild obstructive sleep apnea Bipolar disorder with depression Mixed hyperlipidemia Fatigue Obesity (BMI 30-39.9) Asthma Anxiety Depression ADHD (attention deficit hyperactivity disorder) Surgical History History of tonsillectomy and adenoidectomy S/P appendectomy Family History Father Kidney problem Cardiomyopathy Mother Heart problem Other Mental health problem Social History Housing: Apartment Alcohol intake: current Alcohol intake frequency: a few times a month Patient Tobacco Use Status: Former Tobacco user (smoked for 1 month or 2 at age 22 then stopped.) e-Cigarette/Vaping Use: Never Used Second Hand Smoke Exposure: Yes Substance Use Type: Marijuana service: No Current occupational status: employed Current occupation: post office, rt hand Cognitive needs: No Hearing needs: No Vision needs: Yes Questionnaire Thrive Questionnaire Date Thrive assessed: 01/22/24 ALEJANDRA-7 AMB Questionnaire ALEJANDRA-7 Date ALEJANDRA - 7 assessed: 01/22/24 Source: Developed by Drs. Berhane Roberts, Eva Singh, Gustavo Turcios and colleagues, with an educational marii from [employer]. Review of Systems Const Denies chills, Denies fatigue, Denies fever(s) and Denies headache(s) ENT Denies dysphagia, Denies dizziness, Denies otalgia, Denies headache(s), Denies neck pain, Denies odynophagia and Denies sore throat Card Denies chest pain, Denies irregular heart rhythm, Denies palpitations and Denies dyspnea Resp Denies cough, Denies dyspnea and Denies wheezing GI Denies abdominal pain, Denies constipation, Denies dysphagia, Denies heartburn, Denies diarrhea, Denies nausea, Denies odynophagia and Denies vomiting Denies difficulty urinating, Denies dysuria and Denies urinary frequency Musc Denies back pain, Reports arthralgias (on and off in the left knee) and Denies neck pain Skin/Breast Details: (+) large wart-like lesion on the right index finger Denies rash Neuro Denies dizziness, Denies headache(s) and Denies paresthesias Endo Denies fatigue and Denies palpitations Aller/Immun Denies wheezing Physical exam (Primary Care) Vital Signs: Last Vital Signs Pulse 82 07/09/24 10:55 BP 146/84 H 07/09/24 10:55 Pulse Ox 97 07/09/24 10:55 Oxygen Delivery Method Room Air 07/09/24 10:55 BMI result Body Mass Index 37.6 Tobacco/Smoking Status: Tobacco use Status Tobacco use date assessed 01/22/24 07/09/24 10:51 Patient Tobacco Use Status Former Tobacco user (smoked 07/09/24 10:51 for 1 month or 2 at age 22 then stopped.) e-Cigarette/Vaping Use Never Used 07/09/24 10:57 Thrive Assessment: Date of Thrive Assessment Date Thrive assessed 01/22/24 07/09/24 10:51 Const General: no acute distress and alert HENMT Ears: TM's normal bilaterally and EAC's normal Throat: Yes posterior oropharynx normal and Yes tonsils normal (no TP congestion) Neck Neck: Yes no lymphadenopathy and Yes supple Thyroid: Thyroid normal Resp Auscultation: clear to auscultation bilaterally, no rales and no wheezes Cardio Rate: regular rate Rhythm: regular rhythm Heart sounds: no murmurs GI Palpation (GI): Soft to palpation and nontender Auscultation: normal bowel sounds General: Yes no CVA tenderness Back/Spine/Pelvis Back: no CVA tenderness Thoracic/Lumbar Spine: No lumbar spinal tenderness Skin Other: (+) large raised wart on the right index finger Rashes: no rashes Extrem General: Yes no clubbing, cyanosis or edema Left lower extremity: knee (no pain is elicited on physical exam today) Details: no tenderness and no swelling Results Reviewed Results Reviewed: Laboratory Tests 01/22/24 01/22/24 12:15 12:23 WBC 6.8 Hgb 15.5 Hct 45.4 Plt Count 252 Sodium 142 Potassium 4.3 Creatinine 0.91 Estimated GFR > 60 Fasting Glucose 95 Calcium 9.8 AST 19 ALT 30 Triglycerides 236 H Cholesterol 203 H LDL Cholesterol, Calc 120 H HDL Cholesterol 36 L 25-OH Vitamin D Total 10.3 L TSH 0.62 Ur Specific [place] 1.020 Urine Protein Negative Urine Glucose (UA) Negative Urine Blood Negative Urine Nitrite Negative Ur Leukocyte Esterase Negative Assessment and Plan Assessment & Plan (1) Mixed hyperlipidemia: Code(s): E78.2 - Mixed hyperlipidemia Plan: Results of his labs done back in January 2024 reviewed and discussed with patient Reinforced low cholesterol diet Patient is advised that his serum triglyceride level is still elevated on his most recent labs Will have him recheck his labs and fasting lipids in 6 months for follow up (2) Elevated blood pressure reading: Code(s): R03.0 - Elevated blood-pressure reading, without diagnosis of hypertension Plan: Patient's blood pressure has been much better controlled since his initial visit to our practice a couple of years ago Reinforced low sodium diet He is reminded to monitor his blood pressure periodically (3) Asthma: Code(s): J45.909 - Unspecified asthma, uncomplicated Qualifiers: Asthma severity: mild Asthma persistence: intermittent Asthma complication type: uncomplicated Qualified Code(s): J45.20 - Mild intermittent asthma, uncomplicated Plan: Continue Albuterol HFA 2 inhalations Q 6 hours PRN - Rx refilled May need to consider further work ups if symptoms persist or if he has to use his inhaler regularly and frequently (4) Mild obstructive sleep apnea: Code(s): G47.33 - Obstructive sleep apnea (adult) (pediatric) Plan: Continue using his Autopap device when sleeping at night - setting is at 5-20 cmH2O nightly with goal of using > 4 hrs per night Follow up with Sleep Medicine as scheduled (5) Migraine with aura: Code(s): G43.109 - Migraine with aura, not intractable, without status migrainosus Qualifiers: Status migrainosus presence: without status migrainosus Intractability: not intractable Qualified Code(s): G43.109 - Migraine with aura, not intractable, without status migrainosus Plan: States that his headaches have been better controlled lately Continue Sumatriptan PRN Reinforced avoidance of migraine triggers Follow up with neurology as scheduled (6) Vitamin D deficiency: Code(s): E55.9 - Vitamin D deficiency, unspecified Plan: He is advised that his Vitamin D level was very low on his labs done back in January 2024 Will start him on Vitamin D3 2000 units QD (7) ADHD (attention deficit hyperactivity disorder): Code(s): F90.9 - Attention-deficit hyperactivity disorder, unspecified type Qualifiers: Attention deficit-hyperactivity disorder type: unspecified Qualified Code(s): F90.9 - Attention-deficit hyperactivity disorder, unspecified type Plan: His medical records that we received from his previous PCP has indicated that patient has ADHD, among other diagnoses He is now following up with his therapist and with psychiatry regularly (8) Anxiety: Code(s): F41.9 - Anxiety disorder, unspecified Plan: Patient states that he smokes marijuana regularly to help him relax Continue Clonidine 0.3 mg Q HS and Setraline 75 mg QD Follow up with psychiatry as scheduled (9) Bipolar disorder with depression: Code(s): F31.9 - Bipolar disorder, unspecified Plan: Continue Lamotrigine 75 mg QD and Sertraline 75 mg QD Follow up with psychiatry as scheduled (10) Obesity (BMI 30-39.9): Code(s): E66.9 - Obesity, unspecified Plan: Reinforced diet/exercise as tolerated/lose weight Plan To return in 6 months for his next annual physical examination Orders: Orders Lipid Panel 6 Months E78.00 - Pure hypercholesterolemia, unspecified, Z00.00 - Encounter for general adult medical examination without abnormal findings UA CC w/rflx Micro + Cult 6 Months R30.0 - Dysuria, Z00.00 - Encounter for general adult medical examination without abnormal findings Complete Blood Count Auto Diff 6 Months D64.9 - Anemia, unspecified, Z00.00 - Encounter for general adult medical examination without abnormal findings Comprehensive [place]. Panel Fast 6 Months E78.00 - Pure hypercholesterolemia, unspecified, Z00.00 - Encounter for general adult medical examination without abnormal findings TSH reflex Free T4 6 Months E78.00 - Pure hypercholesterolemia, unspecified, Z00.00 - Encounter for general adult medical examination without abnormal findings Vitamin D 25-OH Total 6 Months E55.9 - Vitamin D deficiency, unspecified, Z00.00 - Encounter for general adult medical examination without abnormal findings Referrals Dermatology Referral B07.9 - Viral wart, unspecified Medications: New cholecalciferol (vitamin D3) 50 mcg PO DAILY 90 days 90 caps 3RF E55.9 - Vitamin D deficiency, unspecified Changed From albuterol sulfate 90 mcg/actuation (ProAir HFA) 2 puffs inhalation Q6H 30 days PRN 18 grams 5RF shortness of breath or wheezing To albuterol sulfate 90 mcg/actuation 2 puffs inhalation Q6H 30 days PRN 18 grams 5RF shortness of breath or wheezing Coding Level of Care Code Est Pt Level 4 (75366) Diagnoses Mixed hyperlipidemia E78.2 Elevated blood pressure reading R03.0 Mild intermittent asthma without complication J45.20 Asthma severity: mild Asthma persistence: intermittent Asthma complication type: uncomplicated Mild obstructive sleep apnea G47.33 Migraine with aura and without status migrainosus, not intractable G43.109 Status migrainosus presence: without status migrainosus Intractability: not intractable Vitamin D deficiency E55.9 Attention deficit hyperactivity disorder (ADHD), unspecified ADHD type F90.9 Attention deficit-hyperactivity disorder type: unspecified Anxiety F41.9 Bipolar disorder with depression F31.9 Obesity (BMI 30-39.9) E66.9
[2024-07-09 10:55] VITALS: BP 146/84; PULSE 82; O2SAT 97; BMI 37.6
== END 2024-07-09 11:39 | disposition home or self-care (01) ==
PROVIDERS: PCP Internal Medicine; Visit Provider Internal Medicine
DX: E78.2 Mixed hyperlipidemia (principal); R03.0 Elevated blood-pressure reading, without diagnosis of hypertension; J45.20 Mild intermittent asthma, uncomplicated; G47.33 Obstructive sleep apnea (adult) (pediatric); G43.109 Migraine with aura, not intractable, without status migrainosus; E55.9 Vitamin D deficiency, unspecified; F90.9 Attention-deficit hyperactivity disorder, unspecified type; F41.9 Anxiety disorder, unspecified
CPT/HCPCS: 99214

== ENCOUNTER 2025-01-18 09:16 | Emergency (ER) | payer OTHER, SELFPAY ==
--- NOTE | ~2025-01-18 | CT_ITS ---
EXAMINATION: CT CERVICAL SPINE WITHOUT CONTRAST CLINICAL INFORMATION: Left shoulder pain. COMPARISON: None available. TECHNIQUE: Contiguous axial images through the cervical spine using 3 mm collimation with bone and soft tissue algorithm. Sagittal and coronal reformatted images acquired. This CT examination was performed using dose optimization techniques as appropriate, variously including the following: *Automated exposure control *Adjustment of mA and/or kV according to patient size (this includes techniques or standardized protocols for targeted exams where dose is matched to indication/reason for exam; i.e. extremities or head) *Use of iterative reconstruction technique DLP: 653 mGy centimeter. FINDINGS: Craniocervical junction is intact. Marginal osteophyte formation and endplate sclerosis and subchondral cyst formation with irregularity and decreased disc height at C5-6. There is normal alignment between the vertebral bodies and the facet joints. Reduced AP diameter of the central spinal canal at C5-6. C1 is intact. C2 is intact. C3 is intact. C4 is intact. C5 is intact. C6 is intact. C7 is intact. No prevertebral compartment hematoma or gross masses. The included tympanic cavities and mastoid cells are aerated. CT/CT cervical spine wo IV con IMPRESSION: Cervical spondylosis C5-6 without acute fracture or trauma-related listhesis. Disc herniation cannot be excluded. If patient's symptoms persist consider noncontrast MRI cervical spine.. Fleischner guidelines were followed. Electronically signed by: Aiden Davies MD 01/18/2025 01:33 PM [facility]
--- NOTE | ~2025-01-18 | XR_ITS ---
EXAMINATION: XR SHOULDER, LEFT CLINICAL INFORMATION: L shoulder pain COMPARISON: None available. TECHNIQUE: Three views of the left shoulder. FINDINGS: Normal bone mineralization. No fracture, dislocation, or suspicious bone lesion. Normal alignment. The glenohumeral joint is normal. The AC joint is normal. There is a neutral lateral acromion. No undersurface spurring. The subacromial space is preserved. Remainder of the soft tissue and bony structures appear normal. XR/XR shoulder LT min 2V IMPRESSION: Normal left shoulder. Electronically signed by: Dada Gusman MD 01/18/2025 01:35 PM [facility]
[2025-01-18 09:18] VITALS: BP 149/87; PULSE 70; RESP 20; TEMP 36.1; O2SAT 96; BMI 36.4
--- NOTE | 2025-01-18 11:23 | ED_ITS ---
HPI - Back Pain/Injury General Chief Complaint: Back Pain/Injury Stated Complaint: Back pain, neck pain Time Seen by Provider: 01/18/25 11:14 Source: patient, RN notes reviewed and old records reviewed Mode of arrival: ambulatory History of Present Illness ED Provider: Ashley Juan PA-C HPI Narrative: 34-year-old male with a past medical history of sleep apnea, migraines, bipolar, HLD, depression, anxiety, and asthma, presenting to ED complaining of left shoulder pain radiating to neck / elbow with associated tingling s/p snow blowing. Denies direct injury/fall or trauma. Admits to using TENS pack, icy hot and heating pack without improvement. Denies chest pain, SOB, headache, vision changes, numbness. Related Data Home Medications ?Medication ?Instructions ?Recorded ?Confirmed clonidine HCl 0.2 mg tablet 0.3 mg PO BEDTIME 08/06/23 07/09/24 lamotrigine 25 mg tablet 75 mg PO DAILY 01/22/24 07/09/24 sertraline 50 mg tablet 75 mg PO DAILY 01/22/24 07/09/24 Previous Rx's ?Medication ?Instructions ?Recorded sumatriptan succinate 100 mg tablet 50 - 100 mg (0.5 - 1 x 100 mg) PO 02/28/24 .COMPLEX PRN migraine headache 30 days #12 tabs albuterol sulfate 90 mcg/actuation 2 puff inhalation Q6H PRN 07/09/24 aerosol inhaler shortness of breath or wheezing 30 days #18 grams cholecalciferol (vitamin D3) 50 50 mcg PO DAILY 90 days #90 caps 07/09/24 mcg (2,000 unit) capsule acetaminophen 500 mg tablet 500 mg PO Q6H PRN fever or pain 01/18/25 (Tylenol Extra Strength) #14 tabs cyclobenzaprine 5 mg tablet 5 mg PO Q8H PRN pain (scale score 01/18/25 7-10) 5 days #14 tabs lidocaine 5 % topical patch 1 patch topical DAILY PRN pain #30 01/18/25 (Lidoderm) ea naproxen 500 mg tablet 500 mg PO BID PRN pain 10 days #20 01/18/25 tabs Allergies Allergy/AdvReac Type Severity Reaction Status Date / Time shellfish derived Allergy Severe Anaphylaxis Verified 01/18/25 09:23 No Known Drug Allergies Allergy Unknown Unknown Verified 01/18/25 09:23 Review of Systems Review of Systems: Yes all other systems are reviewed and are negative Constitutional: Constitutional: Reports as per [facility] Past Medical History Attestation statement: The following information was validated with the patient. Source: old records reviewed Medical History Vitamin D deficiency Mild obstructive sleep apnea Bipolar disorder with depression Mixed hyperlipidemia Fatigue Obesity (BMI 30-39.9) Asthma Anxiety Depression ADHD (attention deficit hyperactivity disorder) Surgical History History of tonsillectomy and adenoidectomy S/P appendectomy Family History Family History Father Kidney problem Cardiomyopathy Mother Heart problem Other Mental health problem Social History Social History Housing: Apartment Alcohol intake: current Alcohol intake frequency: a few times a month Patient Tobacco Use Status: Former Tobacco user (smoked for 1 month or 2 at age 22 then stopped.) e-Cigarette/Vaping Use: Never Used Second Hand Smoke Exposure: Yes Substance Use Type: Marijuana Advance Directives: No Advance Directives Information Provided: Yes Do you have a plan to hurt others: No Plan service: No Current occupational status: employed Current occupation: post office, rt hand Cognitive needs: No Hearing needs: No Vision needs: Yes Physical Exam Vital Signs: Vital Signs: Last Vital Signs Temp 97.0 F 01/18/25 09:18 Pulse 71 01/18/25 11:50 Resp 18 01/18/25 11:50 BP 147/82 H 01/18/25 11:50 Pulse Ox 97 01/18/25 11:50 O2 Del Method Room Air 01/18/25 11:50 BMI result Body Mass Index 36.4 Const: General: cooperative, healthy appearing and no acute distress Orientation/consciousness: patient oriented x3 Limitations: no limitations HEENT: Head: Yes normal to inspection and Yes atraumatic Ears: hearing grossly normal bilaterally General nose exam: Normal external nose present Face and sinus: Yes normal facial exam Eyes: General: appearance normal, both eyes and all related structures EOM: EOMs intact bilaterally Neck: Other: No midline cervical spinous tenderness. + left-sided cervical paraspinal and trapezius muscle reproducible tenderness Neck: Yes normal visual inspection and Yes no meningeal signs Resp: Effort & Inspection: normal respiratory effort and no respiratory distress Cardio: Rate: regular rate Back/Spine/Pelvis: Other: No midline cervical/thoracic/lumbar spinous tenderness/step-off or deformity Skin: Rashes: no rashes Wounds: no wounds Neuro: General: patient oriented x3, tone normal and no meningeal signs Cranial nerves: Yes CN's II-XII intact bilaterally Gait exam (Neuro): Normal gait present Extrem: Other: Left shoulder without appreciable deformity. Mildly tender to palpation. ROM intact with discomfort. Neurovascularly intact distally. General: Yes normal to inspection Course Course Course Narrative: 1408--CT cervical spine wo IV con IMPRESSION: Cervical spondylosis C5-6 without acute fracture or trauma-related listhesis. Disc herniation cannot be excluded. If patient's symptoms persist consider noncontrast MRI cervical spine.. Fleischner guidelines were followed. XR shoulder LT min 2V IMPRESSION: Normal left shoulder. Results discussed with patient including worrisome signs and symptoms and strict return precautions, and when to return to the emergency department. They verbalized understanding and feel safe for discharge at this time. Medications Administered Discontinued Medications Generic Name Dose Route Start Last Admin Trade Name Indraq PRN Reason Stop Dose Admin Cyclobenzaprine HCl 10 mg 01/18/25 11:52 01/18/25 12:22 Cyclobenzaprine Hcl 10 Mg Tablet PO 01/18/25 11:53 10 mg ONCE ONE Administration Ketorolac Tromethamine 30 mg 01/18/25 11:52 01/18/25 12:23 Ketorolac Tromethamine 30 Mg/Ml Vial IM 01/18/25 11:53 30 mg ONCE ONE Administration Medical Decision Making Medical Decision Making [facility] Narrative: 34-year-old male with a past medical history of sleep apnea, migraines, bipolar, HLD, depression, anxiety, and asthma, presenting to ED complaining of left shoulder pain radiating to neck / elbow with associated tingling s/p snow blowing. On exam vital signs stable, NAD, nontoxic appearing, physical exam as noted above. Concern for paresthesias/nerve impingement, tendinopathy/bursitis, rotator cuff injury/tear. Lower suspicion for thoracic outlet syndrome or artery dissection, fracture, dislocation, ACS. Plan: XR, CT, pain control Please refer to course for remaining clinical decision making, interpretation of labs/imaging results, and discussions with consultants and/or family members. Differential Diagnosis Differential Diagnoses: The differential diagnosis associated with the presentation includes As above Admission/Observation Consideration of admission/observation: Escalation of care including admission/observation considered Lab Data MDM Lab Attestation statement: I reviewed the patient's lab results. Independent Interpretation I performed an independent interpretation of an: Plain X-Ray and CT Scan Radiology Impression Discussion of test interpretation with radiology: I have reviewed the radiologist's reading. External Record Review External record reviewed: Inpatient record, Office record, Outpatient record, Prior outpatient labs, Prior outpatient radiology, Primary care record and Outside ED record Tests considered The following testing was considered but not selected: As above Prescription Management I considered prescription management with: Pain Medication Chronic Conditions Patient?s care impacted by: Other Discharge Plan Discharge Clinical Impression: Acute pain of left shoulder, Cervical spondylosis Patient Disposition: Home, Self-Care Instructions: Arthralgia (ED), Neck Pain (ED) Additional Instructions: Your shoulder x-ray was unremarkable. Your neck CT shows cervical spondylosis. If your pain persists we recommend you obtain an MRI with your primary care doctor or Orthopedics Your pain is likely musculoskeletal Flexeril is a muscle relaxer, take at night as it makes you drowsy, do not drive, drink alcohol, or operate machinery while taking it Naproxen as an anti-inflammatory / pain medication, take with food Lidoderm patches are numbing patches, apply to painful area In addition take Tylenol at home If symptoms persist or worsen, pain becomes unbearable, you developed urinary retention or incontinence, or weakness return to the ED Prescriptions: New acetaminophen [Tylenol Extra Strength] 500 mg tablet 500 mg PO Q6H PRN (Reason: fever or pain) Qty: 14 0RF lidocaine [Lidoderm] 5 % adhesive patch,medicated 1 patch topical DAILY MDD remove after 12 hours PRN (Reason: pain) Qty: 30 0RF Rx Instructions: leave on most painful area for up to 12 hrs naproxen 500 mg tablet 500 mg PO BID PRN (Reason: pain) 10 Days Qty: 20 0RF cyclobenzaprine 5 mg tablet 5 mg PO Q8H PRN (Reason: pain (scale score 7-10)) 5 Days Qty: 14 0RF No Action clonidine HCl 0.2 mg tablet 0.3 mg PO BEDTIME sertraline 50 mg tablet 75 mg PO DAILY albuterol sulfate 90 mcg/actuation HFA aerosol inhaler 2 puff inhalation Q6H PRN (Reason: shortness of breath or wheezing) 30 Days Qty: 18 5RF cholecalciferol (vitamin D3) 50 mcg (2,000 unit) capsule 50 mcg PO DAILY 90 Days Qty: 90 3RF lamotrigine 25 mg tablet 75 mg PO DAILY sumatriptan succinate 100 mg tablet 50 - 100 mg PO .COMPLEX PRN (Reason: migraine headache) 30 Days Qty: 12 6RF Rx Instructions: 50 - 100 mg orally at onset of headache, may repeat in 2 hrs PRN; max 2 tabs per day or 4 tabs/week (may take with Ibuprofen) Referrals: [facility] [Provider Group] Eugenio Larson MD [Primary Care Provider] - 5 days Stand Alone Forms: Work/School Release Print Language: [place]se
[2025-01-18 11:50] VITALS: BP 147/82; PULSE 71; RESP 18; O2SAT 97
[2025-01-18] MEDS: Cyclobenzaprine HCl 10 MG TABLET PO (12:22)
[2025-01-18] MEDS: Ketorolac Tromethamine 30 MG/ML VIAL IM (12:23)
[2025-01-18 18:34] VITALS: BP 147/82; PULSE 71; RESP 18; TEMP 36.4; O2SAT 97
== END 2025-01-18 18:36 | disposition home or self-care (01) ==
PROVIDERS: Emergency Provider Emergency Medicine Emergency Medical Services; PCP Internal Medicine
DX: M25.512 Pain in left shoulder (principal); M47.812 Spondylosis without myelopathy or radiculopathy, cervical region
CPT/HCPCS: 72125; 73030; 99283; 99284; J1885

== ENCOUNTER → 2025-01-18 11:52 | Outpatient (BNV) | payer OTHER, SELFPAY | PROVIDERS: Emergency Provider Emergency Medicine Emergency Medical Services; PCP Internal Medicine; Visit Provider Radiology Diagnostic Radiology | DX: M25.512 Pain in left shoulder (principal); M47.812 Spondylosis without myelopathy or radiculopathy, cervical region | CPT/HCPCS: 72125; 73030 ==